=== PATIENT | female | born 1935 | race Caucasian/White ===

== ENCOUNTER 2018-11-29 13:53 | Inpatient (IN) ==
[2018-11-29] MEDS ORDERED: ZOFRAN IV PRN (14:15)
[2018-11-29] MEDS ORDERED: VANCOMYCIN IV PER PHARMACY MISC SCH (15:15)
[2018-11-29] MEDS ORDERED: NS 500 ML IV ONE (15:29)
[2018-11-29 15:45] LABS: BASO# 0.03 X1000 (0.0-0.2); BASO% 0.3 % (0.0-0.8); EOS# 0.14 X1000 (0.0-0.7); EOS% 1.2 % (0.0-10.0); HEMATOCRIT 34.6 % (37.0-47.0); HEMOGLOBIN 10.4 g/dL (12.0-16.0); IMM GRAN# 0.11 X1000 (0.0-0.04); IMM GRAN% 0.9 % (0.0-0.5); LYMPH# 1.93 X1000 (1.2-3.4); LYMPH% 16.2 % (20.5-51.1); MCH 27.2 PG (27-31); MCHC 30.1 g/dL (33-37); MCV 90.6 FL (81-99); MONO# 0.95 X1000 (0.11-0.59); NEUT# 8.72 X1000 (1.4-6.5); NEUT% 73.4 % (42.2-75.2); PLT 318 X1000 (130-400); RBC 3.82 XMIL (4.2-5.4); RDW 15.5 % (11.5-14.5); WBC 11.88 X1000 (4.8-10.8)
[2018-11-29 16:02] LABS: AGAP 13; ALBUMIN 2.9 g/dL (3.5-5.0); ALKALINE PHOSPHATASE 89 U/L (32-104); BUN 14 mg/dL (8-22); CALCIUM 9.2 mg/dL (8.8-10.2); CHLORIDE 106 mmol/L (98-107); COSMO 284; CREATININE 0.6 mg/dL (0.5-0.9); ESTIMATED GFR > 60; GLUCOSE 99 mg/dL (70-104); GOT 19 U/L (10-30); GPT 16 U/L (10-36); POTASSIUM 3.8 mmol/L (3.5-5.1); SODIUM 142 mmol/L (136-145); TCO2 24 mmol/L (25-35); TOTAL BILIRUBIN < 0.15 mg/dL (0.20-1.00); TOTAL PROTEIN 7.5 g/dL (6.3-8.3)
[2018-11-29] MEDS ORDERED: VANCOMYCIN 1,400 MG in NS 250 ML IV ONE (18:00)
[2018-11-29] MEDS: ZOSYN 3.375 GM in NS 50 ML IV SCH ×2 (18:02→22:55)
[2018-11-29] MEDS: NS 1,000 ML IV SCH (18:03)
[2018-11-30 01:47] LABS: BILIRUBIN URINE NEGATIVE (NEGATIVE); BLOOD URINE TRACE (NEGATIVE); CLARITY CLEAR (CLEAR); COLOR YELLOW; GLUCOSE URINE NEGATIVE (NEGATIVE); KETONE URINE NEGATIVE (NEGATIVE); LEUKOCYTES URINE NEGATIVE (NEGATIVE); NITRITE URINE NEGATIVE (NEGATIVE); PH URINE 6.5; PROTEIN URINE NEGATIVE (NEGATIVE); UROBILINOGEN URINE NORMAL
[2018-11-30 01:51] LABS: URINE WBC <10 /HPF (<10)
[2018-11-30 01:52] LABS: URINE BACTERIA 1+ /HFP; URINE CAST NONE SEEN /LPF; URINE CRYSTAL NONE SEEN /HPF; URINE EPITHELIAL CELLS <10 /HPF (<10); URINE RBC <10 /HPF (<10); URINE SOURCE CLEAN CATCH; URINE YEAST PRESENT /HPF
[2018-11-30] MEDS: ZOSYN 3.375 GM in NS 50 ML IV SCH ×4 (03:16→21:22)
[2018-11-30] MEDS: NS 1,000 ML IV SCH ×3 (03:17→18:43)
[2018-11-30 06:31] LABS: BASO# 0.03 X1000 (0.0-0.2); BASO% 0.4 % (0.0-0.8); EOS# 0.21 X1000 (0.0-0.7); EOS% 2.6 % (0.0-10.0); HEMATOCRIT 30.8 % (37.0-47.0); HEMOGLOBIN 9.1 g/dL (12.0-16.0); IMM GRAN# 0.07 X1000 (0.0-0.04); IMM GRAN% 0.9 % (0.0-0.5); LYMPH# 1.91 X1000 (1.2-3.4); LYMPH% 23.7 % (20.5-51.1); MCH 26.7 PG (27-31); MCHC 29.5 g/dL (33-37); MCV 90.3 FL (81-99); MONO# 0.74 X1000 (0.11-0.59); MONO% 9.2 % (1.7-9.3); MPV 9.3 FL (7.4-10.4); NEUT% 63.2 % (42.2-75.2); PLT 278 X1000 (130-400); RBC 3.41 XMIL (4.2-5.4); RDW 15.5 % (11.5-14.5); WBC 8.06 X1000 (4.8-10.8)
[2018-11-30 06:34] LABS: AGAP 9; BUN 12 mg/dL (8-22); CALCIUM 8.4 mg/dL (8.8-10.2); CHLORIDE 111 mmol/L (98-107); COSMO 283; CREATININE 0.5 mg/dL (0.5-0.9); ESTIMATED GFR > 60; GLUCOSE 104 mg/dL (70-104); POTASSIUM 4.2 mmol/L (3.5-5.1); SODIUM 142 mmol/L (136-145); TCO2 23 mmol/L (25-35)
[2018-11-30] MEDS: TYLENOL PO PRN (06:45)
[2018-11-30 06:47] LABS: CHOLESTEROL 117 mg/dL (0-200); HDL 36 mg/dL (45-65); LDL 55 mg/dL; TRIGLYCERIDES 130 mg/dL (35-135); VLDL 26 mg/dL
[2018-11-30] MEDS: VITAMIN D PO SCH (09:58)
[2018-11-30] MEDS: TUMS PO SCH (09:58)
[2018-11-30] MEDS: VITAMIN C PO SCH (09:58)
[2018-11-30] MEDS: VITAMIN B-12 PO SCH (09:59)
[2018-12-01] MEDS: TYLENOL PO PRN (01:29)
[2018-12-01] MEDS: ZOSYN 3.375 GM in NS 50 ML IV SCH ×4 (02:51→21:22)
[2018-12-01] MEDS: VANCOMYCIN 1,100 MG in NS 250 ML IV SCH (05:19)
[2018-12-01] MEDS: VITAMIN D PO SCH (10:18)
[2018-12-01] MEDS: VITAMIN C PO SCH (10:19)
[2018-12-01] MEDS: VITAMIN B-12 PO SCH (10:19)
[2018-12-01] MEDS: TUMS PO SCH (10:19)
[2018-12-01] MEDS: NS 1,000 ML IV SCH (13:49)
[2018-12-02] MEDS: ZOSYN 3.375 GM in NS 50 ML IV SCH ×4 (02:25→20:50)
[2018-12-02 06:29] LABS: BASO# 0.03 X1000 (0.0-0.2); BASO% 0.4 % (0.0-0.8); EOS% 2.6 % (0.0-10.0); HEMATOCRIT 31.2 % (37.0-47.0); HEMOGLOBIN 9.3 g/dL (12.0-16.0); IMM GRAN# 0.03 X1000 (0.0-0.04); IMM GRAN% 0.4 % (0.0-0.5); LYMPH# 1.86 X1000 (1.2-3.4); LYMPH% 24.4 % (20.5-51.1); MCH 26.7 PG (27-31); MCHC 29.8 g/dL (33-37); MCV 89.7 FL (81-99); MONO# 0.67 X1000 (0.11-0.59); MONO% 8.8 % (1.7-9.3); MPV 9.2 FL (7.4-10.4); NEUT# 4.82 X1000 (1.4-6.5); NEUT% 63.4 % (42.2-75.2); PLT 271 X1000 (130-400); RBC 3.48 XMIL (4.2-5.4); RDW 14.9 % (11.5-14.5); WBC 7.61 X1000 (4.8-10.8)
[2018-12-02 06:45] LABS: AGAP 7; BUN 9 mg/dL (8-22); CALCIUM 8.7 mg/dL (8.8-10.2); CHLORIDE 110 mmol/L (98-107); COSMO 278; CREATININE 0.5 mg/dL (0.5-0.9); ESTIMATED GFR > 60; GLUCOSE 99 mg/dL (70-104); POTASSIUM 3.9 mmol/L (3.5-5.1); SODIUM 140 mmol/L (136-145); TCO2 23 mmol/L (25-35)
[2018-12-02] MEDS: VITAMIN D PO SCH (09:20)
[2018-12-02] MEDS: VITAMIN C PO SCH (09:20)
[2018-12-02] MEDS: TUMS PO SCH (09:20)
[2018-12-02] MEDS: VITAMIN B-12 PO SCH (09:20)
[2018-12-02] MEDS: VANCOMYCIN 1,100 MG in NS 250 ML IV SCH (18:07)
[2018-12-03] MEDS: TYLENOL PO PRN ×2 (02:18→19:08)
[2018-12-03] MEDS: ZOSYN 3.375 GM in NS 50 ML IV SCH ×4 (02:19→20:38)
[2018-12-03] MEDS: TUMS PO SCH (10:08)
[2018-12-03] MEDS: VITAMIN D PO SCH (10:08)
[2018-12-03] MEDS: VITAMIN B-12 PO SCH (10:09)
[2018-12-03] MEDS: VITAMIN C PO SCH (10:10)
[2018-12-03] MEDS: NORCO-7.5 PO PRN (20:55)
[2018-12-04] MEDS: ZOSYN 3.375 GM in NS 50 ML IV SCH ×4 (03:04→21:30)
[2018-12-04 07:16] LABS: HEMATOCRIT 32.6 % (37.0-47.0); MCH 27.4 PG (27-31); MCHC 30.7 g/dL (33-37); MCV 89.3 FL (81-99); MPV 9.5 FL (7.4-10.4); RBC 3.65 XMIL (4.2-5.4); RDW 15.2 % (11.5-14.5); WBC 9.17 X1000 (4.8-10.8)
[2018-12-04 07:27] LABS: AGAP 13; ALBUMIN 2.9 g/dL (3.5-5.0); ALKALINE PHOSPHATASE 85 U/L (32-104); BUN 13 mg/dL (8-22); CALCIUM 8.3 mg/dL (8.8-10.2); CHLORIDE 110 mmol/L (98-107); COSMO 288; CREATININE 0.5 mg/dL (0.5-0.9); ESTIMATED GFR > 60; GLUCOSE 112 mg/dL (70-104); GOT 22 U/L (10-30); GPT 20 U/L (10-36); POTASSIUM 4.1 mmol/L (3.5-5.1); SODIUM 144 mmol/L (136-145); TCO2 22 mmol/L (25-35)
[2018-12-04] MEDS: TUMS PO SCH (08:51)
[2018-12-04] MEDS: VITAMIN D PO SCH (08:51)
[2018-12-04] MEDS: VITAMIN C PO SCH (08:51)
[2018-12-04] MEDS: NORCO-7.5 PO PRN ×2 (08:51→23:06)
[2018-12-04] MEDS: VITAMIN B-12 PO SCH (08:51)
[2018-12-04] MEDS: VANCOMYCIN 1,100 MG in NS 250 ML IV SCH (09:28)
[2018-12-05] MEDS: ZOSYN 3.375 GM in NS 50 ML IV SCH (03:34)
[2018-12-05] MEDS: VITAMIN B-12 PO SCH (08:18)
[2018-12-05] MEDS: TUMS PO SCH (08:18)
[2018-12-05] MEDS: VITAMIN C PO SCH (08:18)
[2018-12-05] MEDS: VITAMIN D PO SCH (08:19)
[2018-12-05] MEDS ORDERED: DOXYCYCLINE PO SCH (10:45)
[2018-12-05] MEDS: CULTURELLE PO SCH (11:54)
[2018-12-05] MEDS: DOXYCYCLINE PO SCH (20:26)
[2018-12-06 06:08] VITALS: BP 102/74
[2018-12-06] MEDS: TUMS PO SCH (10:27)
[2018-12-06] MEDS: VITAMIN C PO SCH (10:27)
[2018-12-06] MEDS: VITAMIN D PO SCH (10:27)
[2018-12-06] MEDS: VITAMIN B-12 PO SCH (10:27)
[2018-12-06] MEDS: DOXYCYCLINE PO SCH (10:27)
[2018-12-06] MEDS: CULTURELLE PO SCH (10:27)
== END 2018-12-06 13:06 ==
LOC: SUATTDRO 13:53 → DIRADM 13:53 → P.MEDSURG 14:05
PROVIDERS: ADMIT Family Medicine; ATTEND Family Medicine